=== PATIENT | male | born 1960 | race Caucasian/White ===

== ENCOUNTER 2021-07-08 15:02 | Outpatient (CLI) | payer BC, MEDICARE | END 2021-07-08 15:03 | disposition home or self-care (01) | LOC: CSHULT 15:02 | PROVIDERS: ATTEND Family Medicine | DX: N44.8 Other noninflammatory disorders of the testis (principal); N50.89 Other specified disorders of the male genital organs | CPT/HCPCS: 76870; 93976 ==